=== PATIENT | male | born 1995 | race Caucasian/White ===

== ENCOUNTER 2024-03-30 19:12 | Emergency (ER) | payer MEDICAID ==
[~2024-03-30] VITALS: Ht 170.2 cm; Wt 85.0 kg
[2024-03-30 19:28] VITALS: BP 101/57; PULSE 69; RESP 16; TEMP 98.2
== END 2024-03-30 23:47 | disposition left against medical advice (07) ==
LOC: EMS 19:13
DX: R53.1 Weakness (principal); Z53.21 Procedure and treatment not carried out due to patient leaving prior to being seen by health care provider